=== PATIENT | male | born 1945 | race Asian ===

== ENCOUNTER 2022-09-17 11:41 | Emergency (ER) | payer OTHER, MEDICAID ==
[~2022-09-17] VITALS: Ht 177.8 cm; Wt 68.8 kg
[2022-09-17 11:50] VITALS: BP 125/79
[2022-09-17] MEDS ORDERED: [UNRECOGNIZED DRUG - CODE] LEFTEYE (14:52)
== END 2022-09-17 15:05 | disposition home or self-care (01) ==
LOC: ER 11:41
DX: S05.02XA Injury of conjunctiva and corneal abrasion without foreign body, left eye, initial encounter (principal); E11.9 Type 2 diabetes mellitus without complications; E78.5 Hyperlipidemia, unspecified; X58.XXXA Exposure to other specified factors, initial encounter; Y93.89 Activity, other specified; Y92.89 Other specified places as the place of occurrence of the external cause; Y99.8 Other external cause status